=== PATIENT | female | born 1980 | race Caucasian/White ===

== ENCOUNTER → 2019-12-21 | Outpatient (CLI) | payer OTHER ==
[~2019-12-21] MED LIST: MULT-245 PO; TURM500C4 PO
== END ==
LOC: LAB 07:46
PROVIDERS: ATTEND Nurse Anesthetist, Certified Registered
DX: Z01.812 Encounter for preprocedural laboratory examination (principal); R07.9 Chest pain, unspecified; K52.9 Noninfective gastroenteritis and colitis, unspecified; Z20.828 Contact with and (suspected) exposure to other viral communicable diseases
CPT/HCPCS: U0003-CS

== ENCOUNTER → 2019-12-25 | Day surgery (SDC) | payer OTHER ==
[~2019-12-25] MED LIST changes: +IPRATRPIUM/ALBUTEROL 0.5/2.5MG 3 ML NEBU. NEB PRN; +IV RINGERS SOLUTION,LACTATED 1,000 ML IV SCH; +MIDAZOLAM HCL PF 2 MG/2 ML VIAL. IV ONE; +ONDANSETRON PF 4 MG/2 ML VIAL. IV PRN; +ONDANSETRON PF 4 MG/2 ML VIAL. ONE; +PROPOFOL 10,000 MCG/ML (20ML) VIAL IV ONE
[2019-12-25 12:48] VITALS: BP 91/53
--- NOTE | 2019-12-27 16:06 | PATHOLOGY ---
[facility] Accession Number: [id number] . 01 Material submitted: . PART A: small bowel - SMALL BOWEL R/O CELIAC PART B: stomach - GASTRIC R/O H. PYLORI PART C: esophagus - DISTAL ESOPHAGUS REFLUX. Modifiers: distal PART D: colon - RIGHT COLON BIOPSIES. Modifiers: right . 02 Diagnosis: A. Small bowel biopsies: - No significant pathologic abnormalities. . B. Gastric biopsies: - No significant pathologic abnormalities. . C. Esophageal biopsies, distal esophagus: - Reflux esophagitis. . D. Colonic mucosa, right colon biopsies: - Active chronic colitis, moderate, without granulomas or specific features. [facility] 12/27/2019 0959 Local . 02 Comment: Sections of the small bowel biopsy reveal segments of duodenal mucosal. Where best oriented, the mucosal villi show no sprue-like changes or significant inflammatory changes. . Sections of the gastric biopsy reveal segments of gastric antral mucosa showing congestion and no significant inflammation. A properly controlled immunoperoxidase stain for Helicobacter is negative for Helicobacter organisms. . Sections of the distal esophageal biopsy reveal segments of tangentially oriented hyperplastic squamous esophageal mucosa with focal attached muscularis mucosa and showing focal chronic inflammation. The findings are consistent with reflux esophagitis. There is no evidence of Moy's change, dysplasia, or malignancy. . Sections of the right colon biopsy reveal multiple segments of colonic mucosa showing moderate active chronic inflammation with foci of acute cryptitis and crypt architectural distortion. There are no granulomas or specific features. The findings are consistent with active chronic inflammatory bowel disease. There is no dysplasia or evidence of malignancy. (JPM/db; 12/27/2019) . Special stain performed: Immunoperoxidase stain for Helicobacter on B1. . 02 Electronically signed: . Jan Lux MD, Pathologist NPI- [id number] . 01 Gross description: . A. The specimen is received in formalin, labeled "Mikaela, Carissa", "small bowel". Received are 2 segments of pale mendoza soft tissue measuring 0.2 and 0.3 cm. The specimen is entirely submitted in cassette A1. . B. The specimen is received in formalin, labeled "Mikaela, Carissa", "gastric". Received are 2 segments of pale mendoza soft tissue measuring 0.1 and 0.2 cm. The specimen is entirely submitted in cassette B1. . C. The specimen is received in formalin, labeled "Mikaela, Carissa", "distal esophagus". Received are 2 segments of pale white soft tissue measuring 0.2 and 0.4 cm. The specimen is entirely submitted in cassette C1. . D. The specimen is received in formalin, labeled "Mikaela, Carissa", "right colon biopsies". Received are multiple segments of pale mendoza soft tissue, ranging in size from 0.1 cm to 0.3 cm. The specimen is entirely submitted in cassette D1.([facility]; 12/26/2019) [facility]/CYDNEY 12/26/2019 [facility] Local . 02 Pathologist provided ICD-10: K21.0, K52.9 . 02 CPT . 832981, 273818, 132533, [id number], [id number] Specimen Comment: A courtesy copy of this report has been sent to [phone], [phone] Specimen Comment: [id number] Specimen Comment: Report sent to / DR MONTGOMERY Performed at: 01 [facility] [address], [place] [id number] MD Juan A Guallpa MD Phone: [phone] Performed at: 02 [facility] [address], [place] [id number] MD Jan Lux MD Phone: [phone]
== END | disposition home or self-care (01) ==
LOC: SURG 10:14
PROVIDERS: ATTEND Emergency Medicine
DX: Z12.11 Encounter for screening for malignant neoplasm of colon (principal); K52.9 Noninfective gastroenteritis and colitis, unspecified; K21.0 Gastro-esophageal reflux disease with esophagitis; R07.89 Other chest pain; Z79.899 Other long term (current) drug therapy
CPT/HCPCS: 43239; 45380; 81025; J2704; J7120; 88305; 88342; J2405